=== PATIENT | female | born 1995 | race Hispanic/Latino ===

== ENCOUNTER 2020-10-08 14:42 | Outpatient (CLI) | payer OTHER ==
[2020-10-09 03:55] LABS: SARS-CoV-2 PCR by NAA Not Detected (NotDetected)
== END 2020-10-08 14:43 | disposition home or self-care (01) ==
LOC: CSHLAB 14:42
PROVIDERS: ATTEND Family Medicine
DX: Z20.822 Contact with and (suspected) exposure to COVID-19 (principal)
CPT/HCPCS: 87635; U0003; U0005

== ENCOUNTER 2020-10-12 19:30 | Inpatient (IN) | payer MEDICAID, OTHER, SELFPAY ==
[2020-10-12 22:06] VITALS: BMI 30.3
[2020-10-12] MEDS ORDERED: Methylergonovine 0.2 MG/ML VIAL IM PRN (22:08)
[2020-10-12] MEDS ORDERED: Ondansetron PF 4 MG/2 ML Vial IVP PRN (22:08)
[2020-10-12] MEDS ORDERED: Carboprost 250 MCG/ML AMP IM PRN (22:08)
[2020-10-12] MEDS ORDERED: Ibuprofen 800 MG TAB PO PRN (22:08)
[2020-10-12] MEDS ORDERED: Promethazine HCl 25 MG/ML VIAL IM PRN (22:08)
[2020-10-12] MEDS ORDERED: hydrALAZINE 20 MG/ML VIAL SLOW IVP PRN (22:08)
[2020-10-12] MEDS ORDERED: NS / Oxytocin 40 units/1000ml 1,000 ML IV PRN (22:08)
[2020-10-12] MEDS ORDERED: HYDROcodone/Acetaminophen 5/325 mg Tablet PO PRN (22:08)
[2020-10-12] MEDS ORDERED: Diphenoxylate HCl/Atropine Tablet PO PRN (22:08)
[2020-10-12] MEDS ORDERED: Lidocaine 1% (PF) 30 ML VIAL SC PRN (22:08)
[2020-10-12] MEDS ORDERED: Misoprostol 200 MCG TAB PR PRN (22:08)
[2020-10-12] MEDS: Lactated Ringer's 1,000 ML IV SCH (22:30)
[2020-10-12] MEDS: Misoprostol 100 MCG TAB PO SCH (22:52)
[2020-10-12 23:42] LABS: Mean Corpuscular HGB CONC 33.2 g/dL (32.0-36.0); Mean Corpuscular Hemoglobin 30.6 pg (27.0-33.0); Mean Corpuscular Volume 92.1 fl (81.6-98.3); Mean Platelet Volume 10.6 fl (7.4-10.4); Platelet Count 222 10x3/uL (150-450); RBC Distribution Width 12.3 % (11.5-14.5); Red Blood Cell (RBC) Count 3.92 10x6/uL (3.90-5.03); White Blood Cell (WBC) Count 6.5 10x3/uL (3.5-10.5)
[2020-10-12 23:44] LABS: Hep B Surf Ag Non-Reactive S/CO (NonReactive)
[2020-10-12 23:46] LABS: Syphilis Antibody Nonreactive (Nonreactive); Syphilis Antibody Index 0.03 S/CO (<1.00 Non-Reactive)
[2020-10-12 23:47] LABS: HBSAg Index 0.22 S/CO (0-0.99)
[2020-10-13] MEDS: Misoprostol 100 MCG TAB PO SCH (03:31)
[2020-10-13] MEDS ORDERED: NS w/ Oxytocin 30 units 500 ML ONE ×2 (07:47→17:59)
[2020-10-13] MEDS ORDERED: NS w/ Oxytocin 30 units 1,000 ML IV PRN (08:30)
[2020-10-13] MEDS: Butorphanol Tartrate 1 MG/ML VIAL SLOW IVP PRN ×2 (09:00→11:12)
[2020-10-13] MEDS ORDERED: Fentanyl 4 mcg/Bup 0.1% Cadd 0 ML ONE (12:48)
[2020-10-13] MEDS ORDERED: Fentanyl 4 mcg/Bup 0.1% Cadd 100 ML ONE (12:50)
[2020-10-13] MEDS: Lactated Ringer's 1,000 ML IV SCH (13:07)
[2020-10-13] MEDS ORDERED: Lactated Ringer's 500 ML IV PRN (14:57)
[2020-10-13] MEDS ORDERED: ePHEDrine 50 MG/ML VIAL SLOW IVP PRN (14:57)
[2020-10-13] MEDS ORDERED: Promethazine HCl 25 MG/ML VIAL IM PRN ×2 (14:57→17:15)
[2020-10-13] MEDS ORDERED: Acetaminophen 325 MG TAB PO PRN (14:57)
[2020-10-13] MEDS ORDERED: Naloxone HCl 0.4 mg/ml Vial IVP PRN ×2 (14:57)
[2020-10-13] MEDS ORDERED: Ondansetron PF 4 MG/2 ML Vial IVP PRN ×2 (14:57→17:15)
[2020-10-13] MEDS ORDERED: diphenhydrAMINE 50 MG/ML VIAL IVP PRN (14:57)
[2020-10-13] MEDS ORDERED: Communication Order-Pharmacy FS SCH (15:00)
[2020-10-13] MEDS ORDERED: Fentanyl 4 mcg/Bupivacaine 0.1% Cassette 100 ML EPIDURAL SCH (15:00)
[2020-10-13] MEDS ORDERED: Adacel (T-DAP) 0.5 ML SYRINGE IM ONE (17:15)
[2020-10-13] MEDS ORDERED: HYDROcodone/Acetaminophen 5/325 mg Tablet PO PRN ×2 (17:15)
[2020-10-13] MEDS ORDERED: Lanolin Ointment 7 GM TUBE TOP PRN (17:15)
[2020-10-13] MEDS ORDERED: Benzocaine-Menthol 82.5 ML CAN TOP PRN (17:15)
[2020-10-13] MEDS ORDERED: Milk Of Magnesia 30 ML UDCUP PO PRN (17:15)
[2020-10-13] MEDS ORDERED: diphenhydrAMINE 25 MG CAP PO PRN (17:15)
[2020-10-13] MEDS ORDERED: hydrALAZINE 20 MG/ML VIAL SLOW IVP PRN (17:15)
[2020-10-13] MEDS ORDERED: Bisacodyl 10 MG SUPP PR PRN (17:15)
[2020-10-13] MEDS ORDERED: NS w/ Oxytocin 30 units 500 ML IV SCH (18:30)
[2020-10-13] MEDS ORDERED: Ferrous Sulfate 325 MG TAB PO SCH (20:00)
[2020-10-13] MEDS: Ibuprofen 800 MG TAB PO SCH (20:58)
[2020-10-13] MEDS ORDERED: Docusate Calcium (SURFAK) 240 MG CAP PO SCH (21:00)
[2020-10-14] MEDS: Ibuprofen 800 MG TAB PO SCH ×2 (06:07→14:43)
[2020-10-14] MEDS ORDERED: Ferrous Sulfate 325 MG TAB PO SCH (08:00)
[2020-10-14] MEDS ORDERED: Prenatal Vitamin 1 TAB PO SCH (09:00)
[2020-10-14 11:48] VITALS: TEMP 98.2
[2020-10-14 12:53] VITALS: BP 94/52
== END 2020-10-14 18:50 | disposition home or self-care (01) | DRG 807 ==
LOC: CSHLD 21:53 → CSHPP 10-13 18:15
PROVIDERS: ADMIT Family Medicine; ATTEND Family Medicine
PROC: 10E0XZZ Delivery of Products of Conception, External Approach (ICD-10-PCS; principal; 2020-10-12)
PROC: 0KQM0ZZ Repair Perineum Muscle, Open Approach (ICD-10-PCS; 2020-10-12)
PROC: 10907ZC Drainage of Amniotic Fluid, Therapeutic from Products of Conception, Via Natural or Artificial Opening (ICD-10-PCS; 2020-10-12)
PROC: 3E0P7VZ Introduction of Hormone into Female Reproductive, Via Natural or Artificial Opening (ICD-10-PCS; 2020-10-12)
PROC: 3E033VJ Introduction of Other Hormone into Peripheral Vein, Percutaneous Approach (ICD-10-PCS; 2020-10-12)
DX: O70.1 Second degree perineal laceration during delivery (principal); Z37.0 Single live birth; Z3A.39 39 weeks gestation of pregnancy; Z20.822 Contact with and (suspected) exposure to COVID-19
CPT/HCPCS: 51702; 85027; 86780; 86850; 86900; 86901; 87340; J0595; J2590